=== PATIENT | male | born 1940 | race Caucasian/White ===

== ENCOUNTER 2016-07-19 12:01 | Emergency (ER) | payer MEDICARE ==
[~2016-07-19] VITALS: Ht 170.2 cm; Wt 86.5 kg
[2016-07-19 12:05] VITALS: BP 192/89; PULSE 76; RESP 20; TEMP 97.9; O2SAT 96
[2016-07-19 14:39] VITALS: BP 227/103; PULSE 60; RESP 20; O2SAT 96
--- NOTE | 2016-07-19 14:39 | PD ---
HPI Chief Complaint: Injury Time Seen by Provider: 14:29 Travel History International Travel<30 days: No Contact w/Intl Traveler<30days: No Traveled to known affect area: No History of Present Illness HPI 76-year-old male here for evaluation of left wrist/forearm pain. The patient was playing [employer] this morning when he fell onto an outstretched arm. Patient reports also slightly striking the back of his head, however he did not lose consciousness. He takes a baby aspirin daily. His pain is now mainly in his left wrist and forearm. Pain is worse with movement and palpation, alleviated by rest. No pain in any other joint or extremity. No head, neck, or back pain. He is right-handed. [facility] Social History Tobacco Use: No Allergies-Medications (Allergen,Severity, Reaction): Coded Allergies: No Known Allergies (Unverified , 07/19/16) Reported Meds & Prescriptions Reported Meds & Active Scripts Active Lortab (Hydrocodone-Acetaminophen) 5-325 Mg Tab 1 Tab PO Q6H PRN Reported Vitamin B12 (Cyanocobalamin) 500 Mcg Tab 1,000 Mcg PO DAILY Vitamin D3 (Cholecalciferol) 2,000 Unit Tab 2,000 Units PO DAILY Aspirin 81 Mg Tabdr 81 Mg PO DAILY Terazosin (Terazosin HCl) 5 Mg Cap 5 Mg PO DAILY Atorvastatin (Atorvastatin Calcium) 10 Mg Tab 10 Mg PO DAILY Review of Systems Except as stated in HPI: all other systems reviewed are Neg Physical Exam Narrative GENERAL: Well-developed, well-nourished, comfortable, no acute distress. GCS 15. SKIN: Focused skin assessment warm/dry. No lacerations, abrasions, or ecchymosis. HEAD: Atraumatic. Normocephalic. EYES: Pupils equal and round. No scleral icterus. No injection or drainage. NECK: Trachea midline. No JVD. No midline cervical spine step-off or tenderness. CARDIOVASCULAR: Regular rate and rhythm. I lateral distal radial pulses are brisk and equal. Normal capillary refill in left hand. MUSCULOSKELETAL: Volar aspect of left distal forearm/wrist with moderate swelling with moderate tenderness. All compartments in left upper extremity are supple. Left hand is without deformity and without tenderness. Left elbow and left shoulder are also without deformity and without tenderness, with normal range of motion. The rest of his joints and extremities are without deformity, without tenderness, with normal range of motion. NEUROLOGICAL: Awake and alert. No obvious cranial nerve deficits. Motor grossly within normal limits. Normal speech. Normal sensation in left upper extremity. PSYCHIATRIC: Appropriate mood and affect; insight and judgment normal. Data Data Last Documented VS Vital Signs Date Time Temp Pulse Resp B/P Pulse Ox O2 Delivery O2 Flow Rate FiO2 07/19/16 15:36 59 20 193/93 96 Room Air 07/19/16 12:05 97.9 Orders Forearm (2vws) (07/19/16 ) Wrist, Complete ([id number]) (07/19/16 ) Splinting (07/19/16 ) Sling Cradle Arm (07/19/16 ) Sling Cradle Arm (07/19/16 ) Fiberglass Sugartong Sp Ad Arm (07/19/16 ) MDM Medical Decision Making Medical Screen Exam Complete: Yes Emergency Medical Condition: Yes Differential Diagnosis Left forearm fracture, left wrist fracture, left forearm contusion Narrative Course Left wrist x-ray: Comminuted fracture deformity of the left distal radius. Left forearm x-ray: Distal radial fracture again noted. Case discussed with on-call orthopedic surgeon Dr. Jameson who reviewed the patient's x-rays. Patient will be placed in a sugar tong splint and will follow -up in his office as an outpatient as this may heal without surgical intervention. Patient was made aware of this plan. He was informed on when to return to the emergency department. Diagnosis Primary Impression: Closed fracture of left distal radius Qualified Code: S52.592A - Other closed fracture of distal end of left radius , initial encounter Referrals: Ramses Jameson MD 1 week Additional Instructions: Follow-up with orthopedic surgeon Dr. Jameson or an orthopedic surgeon of your choice in one week. Take arm out of sling every 2 hours to move shoulder joint around. Return to the emergency department for worsening symptoms or any other concerns. Scripts Hydrocodone-Acetaminophen (Lortab)5-325 Mg Tab1 Tab PO Q6H PRN (PAIN) #20 TAB Ref 0 Prov:Shad Deleon MD 07/19/16 Disposition: 01 DISCHARGE HOME Condition: Stable Shad Deleon MD Jul 19, 2016 14:39
[2016-07-19] MEDS ORDERED: ASPI1TAB69 PO (14:47)
[2016-07-19] MEDS ORDERED: VITA200012 PO (14:47)
[2016-07-19] MEDS ORDERED: TERA5CAP3 PO (14:47)
[2016-07-19] MEDS ORDERED: ATOR10TA15 PO (14:47)
[2016-07-19] MEDS ORDERED: VITA500T49 PO (15:00)
--- NOTE | 2016-07-19 15:27 | RADRPT ---
EXAM DATE/TIME: 07/19/2016 14:57 [facility] COMPARISON: No previous studies available for comparison. INDICATIONS : Left wrist pain, fell playing racketball. MEDICAL HISTORY : None. SURGICAL HISTORY : None. ENCOUNTER: Initial ACUITY: 1 day PAIN SCORE: 8/10 LOCATION: Left wrist FINDINGS: AP, lateral and oblique views of the left wrist were obtained and demonstrate a mildly comminuted fra cture deformity of the distal radius with several fracture lines extending into the radiocarpal joint . There is no significant distraction or abnormal angulation. There is overlying soft tissue swelling . The carpus appears intact with degenerative change. The distal ulna is intact as well. CONCLUSION: Comminuted fracture deformity of the distal radius. Adam Carranza MD on July 19, 2016 at 15:23 Board Certified Radiologist. This report was verified electronically.
--- NOTE | 2016-07-19 15:29 | RADRPT ---
EXAM DATE/TIME: 07/19/2016 15:00 [facility] COMPARISON: WRIST LEFT COMPLETE ([id number]), July 19, 2016, 14:57. INDICATIONS : Left forearm pain, fell playing racquetball. MEDICAL HISTORY : None. SURGICAL HISTORY : None. ENCOUNTER: Initial ACUITY: 1 day PAIN SCORE: 8/10 LOCATION: Left forearm FINDINGS: AP lateral views of the left forearm were obtained and demonstrate the distal radial fracture. No add itional fractures are identified. The mid and proximal radius and ulnar are intact. There is distal s oft tissue swelling. CONCLUSION: Distal radial fracture again noted. Adam Carranza MD on July 19, 2016 at 15:26 Board Certified Radiologist. This report was verified electronically.
[2016-07-19 15:36] VITALS: BP 193/93; PULSE 59; RESP 20; O2SAT 96
[2016-07-19] MEDS ORDERED: HYDR-3533 PO (15:58)
== END 2016-07-19 16:14 | disposition home or self-care (01) ==
LOC: NEPD 12:01
DX: S52.592A Other fractures of lower end of left radius, initial encounter for closed fracture (principal); W19.XXXA Unspecified fall, initial encounter; Y93.73 Activity, racquet and hand sports
CPT/HCPCS: 29125; 73090; 73110

== ENCOUNTER → 2016-08-13 | Outpatient (CLI) | payer MEDICARE ==
[~2016-08-13] MED LIST: ASPI1TAB69 PO; ATOR10TA15 PO; HYDR-3533 PO; TERA5CAP3 PO; VITA200012 PO; VITA500T49 PO
[2016-08-13 12:02] LABS: AUTOMATED NEUTROPHIL # 4.1 TH/MM3 (1.8-7.7); BASOPHIL % 0.7 % (0.0-2.0); EOSINOPHIL # 0.3 TH/MM3 (0-0.4); EOSINOPHIL % 5.1 % (0.0-4.0); HEMATOCRIT 45.7 % (39.0-51.0); HEMO FLAGS DIFF FINAL; LYMPH % 20.2 % (9.0-44.0); LYMPHOCYTE # 1.2 TH/MM3 (1.0-4.8); MEAN CELL VOLUME 88.7 FL (80.0-100.0); MEAN CORPUSCULAR HGB CONC 33.8 % (32.0-36.0); MONO % 7.3 % (0.0-8.0); NEUT % 66.7 % (16.0-70.0); PLATELET COUNT 192 TH/MM3 (150-450); RED BLOOD COUNT 5.15 MIL/MM3 (4.50-5.90); RED CELL DISTRIBUTION WIDTH 13.5 % (11.6-17.2); WHITE BLOOD COUNT 6.1 TH/MM3 (4.0-11.0)
[2016-08-13 12:15] LABS: BLOOD, URINE NEG (NEG); COMMENT (UR) CULT NOT INDICATED; CULTURE IF INDICATED CULT NOT INDICATED; GLUCOSE,URINE NEG (NEG); KETONE, URINE NEG (NEG); MUCUS URINE FEW /lpf (OCC); NITRITE,URINE NEG (NEG); SQUAMOUS EPITHELIAL CELL URINE <1 /hpf (0-5); URINE COLOR YELLOW (YELLW/STRAW)
[2016-08-13 12:22] LABS: MICRO ALBUMIN RANDOM URINE RAW 6.7 MG/L (0.0-30.0)
[2016-08-13 12:23] LABS: BICARBONATE 27.2 MEQ/L (21.0-32.0); POTASSIUM 4.1 MEQ/L (3.5-5.1)
== END ==
LOC: ELAB 09:03
PROVIDERS: ATTEND Internal Medicine Nephrology
DX: N18.3 Chronic kidney disease, stage 3 (moderate) (principal)
CPT/HCPCS: 36415; 80069; 81001; 82043; 83970; 85025

== ENCOUNTER → 2016-09-12 | Outpatient (CLI) | payer MEDICARE ==
[2016-09-12 12:18] LABS: AUTOMATED NEUTROPHIL # 3.5 TH/MM3 (1.8-7.7); BASOPHIL % 0.7 % (0.0-2.0); EOSINOPHIL # 0.3 TH/MM3 (0-0.4); EOSINOPHIL % 5.9 % (0.0-4.0); HEMATOCRIT 47.2 % (39.0-51.0); HEMO FLAGS DIFF FINAL; LYMPHOCYTE # 1.5 TH/MM3 (1.0-4.8); MEAN CELL VOLUME 89.4 FL (80.0-100.0); MEAN CORPUSCULAR HEMOGLOBIN 30.3 PG (27.0-34.0); MEAN CORPUSCULAR HGB CONC 33.8 % (32.0-36.0); MONO % 9.7 % (0.0-8.0); NEUT % 58.7 % (16.0-70.0); PLATELET COUNT 183 TH/MM3 (150-450); RED BLOOD COUNT 5.28 MIL/MM3 (4.50-5.90); RED CELL DISTRIBUTION WIDTH 13.4 % (11.6-17.2); WHITE BLOOD COUNT 5.9 TH/MM3 (4.0-11.0)
[2016-09-12 12:27] LABS: BLOOD, URINE TRACE (NEG); COMMENT (UR) CULT NOT INDICATED; CULTURE IF INDICATED CULT NOT INDICATED; GLUCOSE,URINE NEG (NEG); KETONE, URINE NEG (NEG); MUCUS URINE FEW /lpf (OCC); NITRITE,URINE NEG (NEG); PH, URINE 5.5 (5.0-8.5); SQUAMOUS EPITHELIAL CELL URINE <1 /hpf (0-5); URINE COLOR YELLOW (YELLW/STRAW)
[2016-09-12 12:56] LABS: ALT (GPT) 31 U/L (12-78); ANION GAP 7 MEQ/L (5-15); AST (GOT) 19 U/L (15-37); BLOOD UREA NITROGEN 16 MG/DL (7-18); CHLORIDE 106 MEQ/L (98-107); GLOMERULAR FILTRATION RATE 56 ML/MIN (>89); GLUCOSE,FASTING 104 MG/DL (74-99); POTASSIUM 3.9 MEQ/L (3.5-5.1); SODIUM (NA) 141 MEQ/L (136-145)
[2016-09-12 13:06] LABS: ALKALINE PHOSPHATASE 50 U/L (45-117); HDL CHOLESTEROL 41.9 MG/DL (40.0-60.0); LDL CHOLESTEROL 67 MG/DL (0-99); TOTAL BILIRUBIN ADULT 0.8 MG/DL (0.2-1.0)
== END ==
LOC: ELAB 08:25
PROVIDERS: ATTEND Family Medicine
DX: E78.5 Hyperlipidemia, unspecified (principal); I12.9 Hypertensive chronic kidney disease with stage 1 through stage 4 chronic kidney disease, or unspecified chronic kidney disease; N18.3 Chronic kidney disease, stage 3 (moderate)
CPT/HCPCS: 36415; 80053; 80061; 81001; 82306; 84443; 85025

== ENCOUNTER → 2017-04-15 | Outpatient (CLI) | payer MEDICARE ==
[2017-04-15 13:33] LABS: AUTOMATED NEUTROPHIL # 3.3 TH/MM3 (1.8-7.7); BASOPHIL % 0.7 % (0.0-2.0); EOSINOPHIL # 0.3 TH/MM3 (0-0.4); EOSINOPHIL % 5.6 % (0.0-4.0); HEMATOCRIT 48.5 % (39.0-51.0); HEMO FLAGS DIFF FINAL; HEMOGLOBIN 16.2 GM/DL (13.0-17.0); LYMPHOCYTE # 1.2 TH/MM3 (1.0-4.8); MEAN CORPUSCULAR HEMOGLOBIN 30.8 PG (27.0-34.0); MEAN CORPUSCULAR HGB CONC 33.4 % (32.0-36.0); MEAN PLATELET VOLUME 9.8 FL (7.0-11.0); MONOCYTE # 0.4 TH/MM3 (0-0.9); NEUT % 63.7 % (16.0-70.0); PLATELET COUNT 178 TH/MM3 (150-450); RED BLOOD COUNT 5.28 MIL/MM3 (4.50-5.90); RED CELL DISTRIBUTION WIDTH 13.5 % (11.6-17.2); WHITE BLOOD COUNT 5.3 TH/MM3 (4.0-11.0)
[2017-04-15 13:39] LABS: ANION GAP 5 MEQ/L (5-15); BICARBONATE 30.4 MEQ/L (21.0-32.0); BLOOD UREA NITROGEN 18 MG/DL (7-18); CALCIUM 8.9 MG/DL (8.5-10.1); CHLORIDE 105 MEQ/L (98-107); CREATININE 1.43 MG/DL (0.60-1.30); GLOMERULAR FILTRATION RATE 48 ML/MIN (>89); GLUCOSE,FASTING 163 MG/DL (74-99); PHOSPHORUS 1.8 MG/DL (2.5-4.9); POTASSIUM 4.4 MEQ/L (3.5-5.1); SODIUM (NA) 140 MEQ/L (136-145)
[2017-04-15 13:51] LABS: BILIRUBIN, URINE NEG (NEG); BLOOD, URINE NEG (NEG); COMMENT (UR) CULT NOT INDICATED; CULTURE IF INDICATED CULT NOT INDICATED; GLUCOSE,URINE TRACE mg/dL (NEG); KETONE, URINE NEG (NEG); MUCUS URINE FEW /lpf (OCC); NITRITE,URINE NEG (NEG); PH, URINE 5.5 (5.0-8.5); SQUAMOUS EPITHELIAL CELL URINE <1 /hpf (0-5); URINE COLOR YELLOW (YELLW/STRAW); URINE LEUKOCYTE ESTERASE NEG (NEG)
[2017-04-15 13:57] LABS: PARATHYROID HORMONE INTACT 43.8 PG/ML (12.4-76.8)
== END ==
LOC: ELAB 09:28
DX: E55.9 Vitamin D deficiency, unspecified (principal); N18.3 Chronic kidney disease, stage 3 (moderate)
CPT/HCPCS: 36415; 80069; 81001; 82306; 82570; 83970; 84156; 85025